=== PATIENT | male | born 1995 | race Caucasian/White ===

== ENCOUNTER 2017-07-05 19:16 | Emergency (ER) | payer OTHER ==
[2017-07-05 19:28] VITALS: BP 134/80; PULSE 65; TEMP 98.3; BMI 23.5
[2017-07-05] MEDS ORDERED: IBUPROFEN 600 MG TABLET (FP) PO ONE ×2 (19:55→19:58)
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
== END 2017-07-05 20:08 | disposition home or self-care (01) ==
LOC: JERFT 19:16
DX: G44.319 Acute post-traumatic headache, not intractable (principal); V49.49XA Driver injured in collision with other motor vehicles in traffic accident, initial encounter; Y92.488 Other paved roadways as the place of occurrence of the external cause; Y93.89 Activity, other specified; Y99.8 Other external cause status
CPT/HCPCS: 99281-25

== ENCOUNTER 2017-09-17 19:44 | Emergency (ER) | payer OTHER ==
[2017-09-17] MEDS ORDERED: IBUPROFEN 600 MG TABLET (FP) PO ONE ×2 (20:05→20:40)
--- NOTE | 2017-09-17 20:10 | PDOC ---
Rapid Medical Evaluation Chief Complaint: Cold Symptoms Time Seen by Provider: 09/17/17 20:03 Medical Evaluation: Allergies Allergy/AdvReac Type Severity Reaction Status Date / Time No Known Allergies Allergy Verified 07/05/17 19:24 09/17/17 20:04 21 year old male with fever, cough, bodyaches x 2 days. + wheezing PE; patient alert ox3. breath sounds clear, pharyngeal erythema Plan: chest xray rapid strep/ flu ibuprofen patient to be ED/ fast track for further mangement of care. 09/17/17 20:08 09/17/17 20:10
[2017-09-17 20:14] VITALS: BP 153/81; PULSE 87; TEMP 100.1; BMI 23.8
--- NOTE | 2017-09-17 21:06 | PDOC ---
History of Present Illness - General Chief Complaint: Cold Symptoms Stated Complaint: COLD SYMPTOMS Time Seen by Provider: 09/17/17 20:03 Past History - Past Medical History Allergies/Adverse Reactions: Allergies Allergy/AdvReac Type Severity Reaction Status Date / Time No Known Allergies Allergy Verified 09/17/17 20:04 Home Medications: Ambulatory Orders NK [No Known Home Medication] 05/10/15 Albuterol Sulfate Inhaler - [Ventolin HFA Inhaler -] 1 - 2 inh PO Q4H #1 inhaler 09/17/17 Azithromycin [Zithromax 250mg Tablets -] 250 mg PO UTDICT #6 tab 09/17/17 Ibuprofen 800 mg PO TID #30 tablet 09/17/17 Prednisone [Deltasone -] 40 mg PO DAILY #10 tablet 09/17/17 COPD: No - Suicide/Smoking/Psychosocial Hx Smoking History: Never smoked Have you smoked in the past 12 months: No Number of Cigarettes Smoked Daily: 0 Hx Alcohol Use: No Drug/Substance Use Hx: No Substance Use Type: None *Physical Exam - Vital Signs Last Vital Signs Temp Pulse Resp BP Pulse Ox 100.1 F H 87 18 153/81 98 09/17/17 20:04 09/17/17 20:04 09/17/17 20:04 09/17/17 20:04 09/17/17 20:04 ED Treatment Course - ADDITIONAL ORDERS Additional order review: 09/17/17 20:00 Group A Strep Rapid Antigen - Preliminary Throat - Medications Given in the ED: ED Medications Discontinued Medications Generic Name Dose Route Start Last Admin Trade Name Manoj PRN Reason Stop Dose Admin Ibuprofen 600 mg 09/17/17 20:05 09/17/17 20:51 Motrin - PO 09/17/17 20:06 600 mg ONCE ONE Administration *DC/Admit/Observation/Transfer Diagnosis at time of Disposition: Bronchitis - Discharge Dispostion Disposition: HOME Condition at time of disposition: Stable Admit: No - Prescriptions Prescriptions: Albuterol Sulfate Inhaler - [Ventolin HFA Inhaler -] 1 - 2 inh PO Q4H #1 inhaler Azithromycin [Zithromax 250mg Tablets -] 250 mg PO UTDICT #6 tab Ibuprofen 800 mg PO TID #30 tablet Prednisone [Deltasone -] 40 mg PO DAILY #10 tablet - Referrals Referrals: Tomasz Lorenzo MD [Staff Physician] - - Patient Instructions Printed Discharge Instructions: DI for Acute Bronchitis Additional Instructions: You have bronchitis. Your strep test and influenza tests are negative at this time. Your chest x-ray is also negative for pneumonia. Please take the [facility] as directed. Your also prescribed albuterol. Please use the inhaler every 4 hours while awake to help with her symptoms. Your also prescribed prednisone. This is a steroid. Please take this medication as directed. He may take ibuprofen as needed for pain or fever. Please follow-up with her primary care doctor in 1 week. Return to the emergency department if you have worsening of your symptoms, difficulty breathing, shortness of breath, or any changes in your symptoms. - Post Discharge Activity Forms/Work/School Notes: Back to Work
[2017-09-17] MEDS ORDERED: ALBUTEROL SO4 2.5/IPRATROPIUM 0.5 INH SOL 3 ML VIAL.NEB. NEB ONE (22:10)
== END 2017-09-17 22:35 | disposition home or self-care (01) ==
LOC: JERFT 19:44
PROC: 3E0F7GC Introduction of Other Therapeutic Substance into Respiratory Tract, Via Natural or Artificial Opening (ICD-10-PCS; principal; 2017-09-17)
DX: J20.9 Acute bronchitis, unspecified (principal)
CPT/HCPCS: 71020-TC; 87070; 87077; 87430; 87804; 99281-25